=== PATIENT | male | born 1970 | race Caucasian/White ===

== ENCOUNTER → 2022-10-25 15:11 | Outpatient (CLI) | payer SELFPAY ==
--- NOTE | 2022-10-26 01:38 | DI.NM.S_ITS ---
DATE OF SERVICE: 10/25/2022 PROCEDURE PERFORMED: Exercise treadmill stress test without imaging. ORDERING PROVIDER: Kiesha Marte MD INDICATIONS: The patient is a 51-year-old male with atypical, positional chest discomfort. FINDINGS: 1. The patient was able to exercise for 10 minutes, 13 seconds on a standard Abraham protocol, suggesting average exercise capacity with a WILMER of +2%, achieving 12.8 METS. 2. He had a normal heart rate and blood pressure response to exercise, achieving a maximum heart rate of 162 BPM (96% of his predicted maximum). 3. He had no chest discomfort or other anginal symptoms except mild exertional dyspnea. 4. His resting ECG shows sinus rhythm with normal ST segments. There are no significant ST-segment shifts or arrhythmias with stress. IMPRESSION: 1. Normal exercise treadmill stress test for ischemia. 2. Average exercise capacity without angina or arrhythmias. Kael Heck - SHARI/oral/ec doc#: [id number]/job#: [id number] dd: 10/25/2022 16:36:00 dt: 10/25/2022 23:19:00 DICTATING MD/COPIES TO: Kael Couch MD; Kiesha Marte MD COPIES MNE: ASHER;
== END ==
PROVIDERS: PCP Emergency Medicine; Referring Provider Internal Medicine Cardiovascular Disease; Visit Provider Internal Medicine Cardiovascular Disease
DX: R07.9 Chest pain, unspecified
CPT/HCPCS: 93017